=== PATIENT | male | born 2000 | race Caucasian/White ===

== ENCOUNTER 2020-09-27 19:07 | Emergency (ER) | payer SELFPAY ==
[~2020-09-27] VITALS: Ht 170.2 cm; Wt 61.2 kg
[2020-09-27 19:32] VITALS: BP 117/69
[2020-09-27 19:54] LABS: CLARITY,URINE CLEAR (Clear); COLOR,URINE YELLOW (Yellow); GLUCOSE, URINE NEGATIVE (Neg); KETONES,URINE NEGATIVE (Neg); LEUKOCYTE ESTERASE ,URINE NEGATIVE (Neg); NITRITES, URINE NEGATIVE (Neg); OCCULT BLOOD,URINE NEGATIVE (Neg); PROTEIN,URINE NEGATIVE (Neg); UA COLLECTION TYPE VOIDED; UROBILINOGEN,URINE 0.2 E.U/dL (0.2-1.0)
[2020-09-27] MEDS: azithromycin 250mg tablet PO ONE ×2 (22:12→22:20)
[2020-09-27] MEDS: CefTRIAXone 250MG IM Kit w/LIDOcaine IM ONE ×2 (22:13→22:20)
== END 2020-09-27 22:21 | disposition home or self-care (01) ==
LOC: ER 19:08
DX: Z20.2 Contact with and (suspected) exposure to infections with a predominantly sexual mode of transmission (principal); R30.0 Dysuria; Z88.1 Allergy status to other antibiotic agents
CPT/HCPCS: 36415; 81003; 87491; 87591; 96372; 99283; J0696